=== PATIENT | female | born 1980 | race Two or more races ===

== ENCOUNTER 2016-12-24 13:20 | Emergency (ER) | payer MEDICAID ==
[2016-12-24 13:28] VITALS: O2SAT 98
[2016-12-24] MEDS ORDERED: METHOCARBAMOL 750 MG TAB PO ONE (15:45)
--- NOTE | 2016-12-24 15:53 | EDPHY ---
H & P Stated Complaint: Lumbar back pain after snowboarding 12/23 Time Seen by Provider: 12/24/16 15:02 HPI/ROS: CHIEF COMPLAINT: back pain HISTORY OF PRESENT ILLNESS: 36-year-old female presents emergency department complaining of low back pain after a fall snowboarding yesterday. Patient reports she fell directly back and fell onto her butt and head. She denies loss of consciousness, reports she does have neck pain. The patient reports a known history of a herniated disc in her neck. She denies pain in her arms, numbness or weakness in her arms. Patient denies loss of control of her bowel or bladder, no saddle anesthesias. She reports tingling to the bottom of her right foot that is new. Patient has chronic back pain, she has an MRI from May of [address] goss ordered for a back pain and leg weakness. Patient denies fevers, chills. No urinary frequency, urgency or dysuria, no hematuria, no abdominal pain. REVIEW OF SYSTEMS: A comprehensive 10 point review of systems is otherwise negative aside from elements mentioned in the history of present illness. Source: Patient - Personal History LMP (Females 10-55): Now Current Tetanus/Diphtheria Vaccine: Yes Current Tetanus Diphtheria and Acellular Pertussis (TDAP): Yes Tetanus Vaccine Date: 2013 - Medical/Surgical History Hx Asthma: Yes Hx Chronic Respiratory Disease: No Hx Diabetes: No Hx Cardiac Disease: No Hx Renal Disease: No Hx Cirrhosis: No Hx Alcoholism: No Hx HIV/AIDS: No Hx Splenectomy or Spleen Trauma: No Other PMH: ADHD, ASTHMA Ovarian cyst removal 2013, fractured L4, Muscular Dystrophy FSH-Pat Goss, spondiolithesis, hypothyroidism. - Social History Smoking Status: Heavy smoker - Physical Exam Exam: Physical Exam Gen: Alert and Oriented, NAD HEENT: PERRL, moist mucous membranes NECK: Midline C-spine tenderness to palpation CV: regular rate and regular rhythm PULM: CTAB, no wheezes ABDOMEN: soft, non tender to palpation, BS present BACK: Midline lumbar tenderness to palpation with bilateral paraspinal tenderness NEURO: Neurologically grossly intact, 2/4 deep tendon reflexes patellar and Achilles bilaterally, equal strength bilaterally, sensation intact to light touch, 2+ pedal pulses, negative Nazario's, full strength bilateral arms, 2+ radial pulses, sensation intact to light touch EXTREMITIES: normal appearing SKIN: [place], warm, dry PSYCH: answers questions appropriately. Constitutional: Initial Vital Signs Temperature (C) 36.3 C 12/24/16 13:24 Heart Rate 98 12/24/16 13:24 Respiratory Rate 16 12/24/16 13:24 Blood Pressure 129/67 H 12/24/16 13:24 O2 Sat (%) 98 12/24/16 13:24 O2 Delivery Mode Room Air Allergies/Adverse Reactions: peanut Allergy (Unknown, Verified 12/24/16 13:30) acetaminophen [From Percocet] Allergy (Verified 12/24/16 13:30) Hives cephalexin Allergy (Verified 12/24/16 13:31) Hives latex Allergy (Verified 12/24/16 13:30) Swelling/neck,face,throat margret Allergy (Verified 12/24/16 13:30) Swelling/neck,face,throat naproxen sodium [From Anaprox] Allergy (Verified 12/24/16 13:30) Vomiting oxycodone HCl [From Percocet] Allergy (Verified 12/24/16 13:30) Hives red dye Allergy (Verified 12/24/16 13:30) Other-Enter Comments shellfish derived Allergy (Verified 12/24/16 13:30) Anaphylaxis BEES Allergy (Uncoded 12/24/16 13:30) Swelling/neck,face,throat CODIENE Allergy (Uncoded 12/24/16 13:30) Hives MSG Allergy (Uncoded 07/21/15 11:01) pink dye on benadryl Allergy (Uncoded 12/24/16 13:30) Other-Enter Comments Home Medications: Medication Instructions Recorded Adderall 10 MG (RX) 12/17/14 Cetirizine HCl 12/24/16 Levothyroxine 12/24/16 Methocarbamol [Robaxin-750] 750 - 1,500 mg PO QID PRN #20 12/24/16 tablet Medical Decision Making - Diagnostics Imaging: Cervical spine CT- Impression: 1. No acute fracture or soft tissue swelling. 2. If the patient has persistent pain or neurologic deficits, consider cervical spine MRI. 3. Disk bulge at C4-C5. Findings discussed with Emergency Department nurse practitioner, Nohelia Pereira , at 1600 hours December 24, 2016. Dictated By: Yrn Mendoza MD Lumbar spine x-ray independently reviewed by me- Impression: 1. No acute fracture or soft tissue swelling. 2. If the patient has persistent pain or neurologic deficits, consider cervical spine MRI. 3. Disk bulge at C4-C5. Findings discussed with Emergency Department nurse practitioner, Nohelia Pereira , at 1600 hours December 24, 2016. Dictated By: Yrn Mendoza MD Procedures: Trigger point injections done to right lumbar paraspinal and left lumbar paraspinal using 2 mL as of 0.5% Marcaine without epinephrine in each location with a 27 gauge needle. Area was cleaned with chlorhexidine, patient was sitting up in bed with her legs dangling over the side. Patient tolerated this without difficulty. ED Course/Re-evaluation: cervical spine CT shows no acute fracture, it shows a C4-5 disc bulge unchanged from 2015. Lumbar spine x-ray shows no acute fracture. Patient 750 mg of oral Robaxin, 15 mg of IM Toradol and she was given 2 trigger-point massage of 0.5% Marcaine without epinephrine 2 lumbar paraspinals. Patient reports pain has improved after these injections. Patient will be discharged with a prescription for methocarbamol. She is given Neurosurgery for follow-up for any continued pain. She is given strict return precautions for any neurovascular compromise. Differential Diagnosis: The differential diagnosis for the patient's back pain included but was not limited to musculo-skeletal pain, epidural abscess, herniated disk, spinal fracture, cauda equina and intra-abdominal causes including urinary system. - Data Points Medications Given: Discontinued Medications Ketorolac Tromethamine (Toradol) 15 mg IM EDNOW ONE Stop: 12/24/16 16:11 Last Admin: 12/24/16 16:20 Dose: 15 mg Methocarbamol (Robaxin) 750 mg PO EDNOW ONE Stop: 12/24/16 15:46 Last Admin: 12/24/16 15:53 Dose: 750 mg Departure - Departure Disposition: Home, Routine, Self-Care Clinical Impression: Cervical disc herniation Cervical strain Qualifiers: Encounter type: initial encounter Qualified Code(s): S16.1XXA - Strain of muscle, fascia and tendon at neck level, initial encounter Low back strain Qualifiers: Encounter type: initial encounter Qualified Code(s): S39.012A - Strain of muscle, fascia and tendon of lower back, initial encounter Condition: Good Instructions: Cervical Strain (ED), Low Back Strain (ED), Cervical Disc Herniation (ED), Lower Back Exercises (ED) Additional Instructions: Take 600 mg of ibuprofen every 8 hours with food for 3-5 days, take Robaxin as prescribed ice or heat whichever feels better, core strengthening exercises, follow up with Neurosurgery for your neck and back pain in the next 7-10 days. Call to schedule this appointment tomorrow. Return to the emergency department for pain that is not controlled, loss of control of her bowel or bladder, numbness to your groin, fevers, any arm weakness or other concerns. Referrals: CLIFF LOVE [Primary Care Provider] - As per Instructions Dwaine Donaldson MD [Medical Doctor] - As per Instructions (Neurosurgeon on-call) Prescriptions: Methocarbamol [Robaxin-750] 750 - 1,500 mg PO QID PRN #20 tablet PRN Reason: Spasms
[2016-12-24] MEDS ORDERED: KETOROLAC 30 MG/1 ML SDV IM ONE (16:10)
[2016-12-24] MEDS ORDERED: KETOROLAC 15 MG/1 ML SDV ONE (16:11)
[2016-12-24 16:39] VITALS: BP 116/74; PULSE 76; RESP 18; TEMP 98.2
== END 2016-12-24 16:39 | disposition home or self-care (01) ==
PROC: 3E023BZ Introduction of Anesthetic Agent into Muscle, Percutaneous Approach (ICD-10-PCS; principal; 2016-12-24)
DX: M50.20 Other cervical disc displacement, unspecified cervical region (principal); S16.1XXA Strain of muscle, fascia and tendon at neck level, initial encounter; S39.012A Strain of muscle, fascia and tendon of lower back, initial encounter; J45.909 Unspecified asthma, uncomplicated; F17.200 Nicotine dependence, unspecified, uncomplicated; Z91.010 Allergy to peanuts; Z91.040 Latex allergy status; V00.311A Fall from snowboard, initial encounter; Y93.23 Activity, snow (alpine) (downhill) skiing, snowboarding, sledding, tobogganing and snow tubing
CPT/HCPCS: J1885

== ENCOUNTER → 2019-01-11 | Outpatient (CLI) | payer MEDICAID | LOC: FIMAGING 15:37 | DX: Z12.31 Encounter for screening mammogram for malignant neoplasm of breast (principal) ==